=== PATIENT | female | born 1965 | race Caucasian/White ===

== ENCOUNTER 2022-11-06 19:24 | Outpatient (CLI) | payer OTHER, SELFPAY | END 2022-11-06 19:25 | disposition home or self-care (01) | LOC: AMB 11-11 14:55 | PROVIDERS: Visit Provider Emergency Medicine Emergency Medical Services | DX: T63.441A Toxic effect of venom of bees, accidental (unintentional), initial encounter (principal); Y92.9 Unspecified place or not applicable | CPT/HCPCS: A0425; A0427 ==